=== PATIENT | male | born 1960 | race Caucasian/White ===

== ENCOUNTER → 2020-12-31 | Outpatient (CLI) | payer MEDICARE, OTHER ==
[~2020-12-31] MED LIST: MOBIC15 MG PO
== END ==
LOC: CT 08:13
DX: K52.9 Noninfective gastroenteritis and colitis, unspecified (principal)
CPT/HCPCS: 36415; 82565; Q9967

== ENCOUNTER 2021-04-15 13:48 | Emergency (ER) | payer MEDICARE ==
[2021-04-15] MEDS ORDERED: MOBIC15 MG PO (16:05)
== END 2021-04-15 16:09 | disposition home or self-care (01) ==
LOC: ER1 13:48
DX: S80.11XA Contusion of right lower leg, initial encounter (principal); E11.9 Type 2 diabetes mellitus without complications; I10 Essential (primary) hypertension; Z79.01 Long term (current) use of anticoagulants; W01.0XXA Fall on same level from slipping, tripping and stumbling without subsequent striking against object, initial encounter; Y92.009 Unspecified place in unspecified non-institutional (private) residence as the place of occurrence of the external cause
CPT/HCPCS: 73590; 99283